=== PATIENT | female | born 2005 | race African-American/Black ===

== ENCOUNTER 2024-06-09 13:20 | Emergency (ER) | payer OTHER ==
[~2024-06-09] VITALS: Ht 162.6 cm; Wt 61.2 kg
[2024-06-09 14:15] VITALS: PULSE 73; RESP 16; TEMP 98.4
[2024-06-09 16:36] VITALS: BP 120/70; PULSE 66; RESP 16; TEMP 98.4; O2SAT 98
== END 2024-06-09 16:37 | disposition home or self-care (01) ==
LOC: ER 14:18
DX: S90.32XA Contusion of left foot, initial encounter (principal); S90.112A Contusion of left great toe without damage to nail, initial encounter; W20.8XXA Other cause of strike by thrown, projected or falling object, initial encounter; Y99.0 Civilian activity done for income or pay
CPT/HCPCS: 99283